=== PATIENT | female | born 1955 | race Caucasian/White ===

== ENCOUNTER 2018-10-20 14:17 | Observation (INO) ==
[2018-10-20] MEDS ORDERED: 0.9 % Sodium Chloride 1,000 ML IVC ONE (14:44)
--- NOTE | 2018-10-20 14:46 | Emergency Department Note ---
Disposition Clinical Impression: Elevated lactic acid level, Dyspnea, Palpitations Disposition: Home, Self-Care Condition: Fair Time of Disposition: 16:36 SOB HPI - General Chief Complaint: ED Shortness of Breath/Dyspnea Stated Complaint: 'Trouble Breathing, HR Feels Up' Time Seen by Provider: 10/20/18 14:32 Source: patient, family Mode of arrival: ambulatory Limitations: no limitations Nursing Notes Reviewed: Yes Vital Signs Reviewed: Yes - History of Present Illness 63-year-old female has been battling an upper respiratory cold for a couple weeks since he received today having palpitations shortness of breath denies though any blurred vision double vision denies any swelling or edema in the legs patient states that she is been having some flushing and feeling warm she denies diarrhea melena hematochezia hematemesis. She denies any known exposure to influenza. She denies any numbness tingling weakness recent weight gain weight loss she has taken antibiotics and with a little bit of improvement of symptoms all systems have been reviewed and are otherwise negative at this time Pt Subjective Complaint: shortness of breath, cough Onset (ago): week(s) (3) Context: recent illness Severity: moderate Consistency/Duration: gradually worsening Improves with: nothing Worsens with: exertion, movement Known history of: asthma Associated symptoms: Reports: pain with inspiration, fever, cough, wheezing, palpitations. Denies: chest pain, sputum production, orthopnea, lower extremity pain, polyuria, polydipsia, parasthesias, hemoptysis, diaphoresis, nausea/vomiti ng, syncope, abdominal pain, rash, sense of impending doom Treatment prior to arrival: none - Related Data Home Medications Medication Instructions Recorded Confirmed Atorvastatin Calcium [Lipitor] 20 mg PO HS 11/23/17 10/20/18 Lisinopril/Hydrochlorothiazide 1 tab PO DAILY 11/23/17 10/20/18 [Zestoretic 10-12.5 mg Tablet] Omeprazole [PriLOSEC] 20 mg PO DAILY PRN 11/23/17 10/20/18 metFORMIN [Glucophage] 500 mg PO BIDWM 11/23/17 10/20/18 Previous Rx's Medication Instructions Recorded Ibuprofen [Motrin] 600 mg PO Q6HR PRN #60 tab 11/23/17 Allergies Allergy/AdvReac Type Severity Reaction Status Date / Time gabapentin [From Neurontin] AdvReac Dizziness Verified 10/20/18 14:26 All systems ED: reviewed and negative except as stated. Review of Systems: As Per HPI Constitutional: Reports: fever. Denies: chills, weakness Eyes: Denies: eye pain, eye discharge ENT ED: Reports: congestion. Denies: ear pain, throat pain Cardiovascular: Reports: palpitations, dyspnea on exertion. Denies: chest pain Respiratory: Reports: cough, dyspnea, wheezes Gastrointestinal: Denies: abdominal pain, nausea, vomiting Genitourinary: Denies: urgency, dysuria, frequency Musculoskeletal: Denies: back pain, neck pain Integumentary: Denies: rash, abrasion, lesions Neurological: Denies: headache, weakness Psychiatric: Denies: anxiety, depression Endocrine: Denies: fatigue Hematological/Lymphatic: Denies: easy bleeding Allergic/Immunologic: Denies: facial swelling Past Medical History - Past Medical History Attestation: Yes The following information was validated with the patient. Source: patient, old records reviewed, obtained from family, nursing notes reviewed Medical history: Reports: diabetes, hyperlipidemia, hypertension Psychiatric history: Reports: no psych history COMPUTER ARCHITECT history: Reports: no COMPUTER ARCHITECT history - Social History Smoking Status: Never smoker Smokeless Tobacco Status: No Alcohol use: Reports: none Drug use: Reports: none Physical Exam - General Limitations: no limitations General appearance: alert, in no apparent distress - Head Head exam: atraumatic, normocephalic, normal inspection - Eye Eye exam: Present: normal appearance, PERRL, EOMI - ENT ENT exam: normal exam, normal oropharynx, mucous membranes moist, TM's normal bilaterally, normal external ear exam - Neck Neck exam: Present: normal inspection, full ROM, trachea midline - Chest Chest inspection: Present: normal inspection, symmetric chest wall rise - Respiratory Respiratory exam: Present: normal lung sounds bilaterally - Cardiovascular Cardiovascular exam: Present: tachycardia, normal heart sounds - Abdominal Exam Abdominal exam: Present: soft, Non-Tender, normal bowel sounds. Absent: mass, pulsatile mass - Extremities Exam Extremities exam: Present: normal inspection, full ROM, normal capillary refill. Absent: tenderness, pedal edema, joint swelling, calf tenderness - Expanded Lower Extremity Exam Neurovascular/Tendon exam: Present: normal capillary refill, normal fine/light touch Gait: observed and normal - Back Exam Back exam: Present: normal inspection, full ROM. Absent: muscle spasm - Neurological Exam Neurological exam: Present: alert, oriented X3, CN II-XII intact - Psychiatric Psychiatric exam: Present: normal affect, normal mood - Skin Skin exam: Present: warm, dry, intact, normal color Course Course Narrative: Patient was immediately seen and evaluated laboratory data was ordered including that for d-dimer to make sure that he did not have any evidence of pulmonary emboli - Reevaluation(s) Reevaluation #1: She does not elevated lactate which is 4.2 which does meet sepsis criteria she has responded well to the fluids her color is pink warm and dry her heart rate is drop significantly she has strong bounding pulses her heart is now irregular tachycardia and she is asymptomatic patient be admitted for observation started on antibiotics spoke with hospitalist who agreed Reevaluation #2: The elevated lactic acid cannot be completely delineated at this point but with her having an underlying history of diabetes with hydration there may be a presentation of pneumonia at that point IV hydration anabolic's will be given at this time I spoke with Dr. Cohen he is agreed for admission Vital Signs Temperature 99.5 F 10/20/18 14:26 Pulse Rate 131 10/20/18 14:26 Respiratory Rate 20 10/20/18 14:26 Blood Pressure 154/89 10/20/18 14:26 O2 Sat by Pulse Oximetry 95 10/20/18 14:26 Temperature 99.5 F 10/20/18 14:26 Pulse Rate 100 10/20/18 15:56 Respiratory Rate 22 10/20/18 15:56 Blood Pressure 123/81 10/20/18 15:56 O2 Sat by Pulse Oximetry 95 10/20/18 15:56 Oxygen Delivery Oxygen Delivery Room Air Shortness of Breath/Dyspnea - Differential Diagnosis Likely: pneumonia, asthma with exacerbation - Medical Records Medical records reviewed: Yes I reviewed the patient's medical records. - Lab Data Lab results reviewed: Yes I reviewed the patient's lab results. Result diagrams: 10/20/18 15:16 10/20/18 15:16 Lab Results 10/20/18 10/20/18 10/20/18 Range/Units 15:16 15:16 15:16 WBC 9.6 (4.3-11.1) K/mcL RBC 4.90 (3.82-4.97) M/mcL Hgb 13.9 (11.5-15.4) g/dL Hct 40.7 (35.3-44.9) % MCV 83.1 (83.0-100.0) fL MCH 28.4 (28.0-33.3) pg MCHC 34.2 (31.6-35.5) g/dL RDW 13.1 (11.5-14.5) % Plt Count 382 (140-400) K/mcL MPV 9.5 (9.4-12.4) fL Immature Gran % 0.3 (0-4) % Seg Neutrophils % 57.2 % Lymphocytes % 33.2 % Monocytes % 5.8 % Eosinophils % 2.9 % Basophils % 0.6 % Neutrophils # 5.5 (1.6-8.9) K/mcL Lymphocytes # 3.2 (0.6-4.6) K/mcL Monocytes # 0.6 (0.0-1.3) K/mcL Eosinophils # 0.3 (0.0-0.6) K/mcL Basophils # 0.1 (0.0-0.2) K/mcL PT 11.4 (9.4-12.1) Seconds INR 1.0 APTT 30.8 (26.0-36.0) Seconds D-Dimer (0-500) ng/mLFEU Sodium 134 L (136-145) mEq/L Potassium 3.3 L (3.5-5.1) mEq/L Chloride 96 L (98-107) mEq/L Carbon Dioxide 26 (23-29) mEq/L BUN 13 (8-23) mg/dL Creatinine 0.82 (0.60-1.20) mg/dL Est GFR ( Amer) > 60 (> 60) Est GFR (Non-Af Amer) > 60 (> 60) BUN/Creatinine Ratio 16 (6-26) Glucose 203 H (70-105) mg/dL Calculated Osmolality 284 (280-300) Lactic Acid (0.5-2.2) mmol/L Calcium 9.9 (8.6-10.3) mg/dL Total Bilirubin 0.3 (0.3-1.0) mg/dL AST 17 (13-39) Units/L ALT 19 (7-52) Units/L Alkaline Phosphatase 83 (34-104) Units/L Troponin I (< 0.04) ng/mL Serum Total Protein 7.6 (6.4-8.9) g/dL Albumin 4.3 (3.5-5.7) g/dL Globulin 3.3 (2.4-3.5) g/dL Albumin/Globulin Ratio 1.3 (1.1-2.2) TSH 0.188 L (0.340-5.600) mcIU/mL 10/20/18 10/20/18 10/20/18 Range/Units 15:16 15:16 15:16 WBC (4.3-11.1) K/mcL RBC (3.82-4.97) M/mcL Hgb (11.5-15.4) g/dL Hct (35.3-44.9) % MCV (83.0-100.0) fL MCH (28.0-33.3) pg MCHC (31.6-35.5) g/dL RDW (11.5-14.5) % Plt Count (140-400) K/mcL MPV (9.4-12.4) fL Immature Gran % (0-4) % Seg Neutrophils % % Lymphocytes % % Monocytes % % Eosinophils % % Basophils % % Neutrophils # (1.6-8.9) K/mcL Lymphocytes # (0.6-4.6) K/mcL Monocytes # (0.0-1.3) K/mcL Eosinophils # (0.0-0.6) K/mcL Basophils # (0.0-0.2) K/mcL PT (9.4-12.1) Seconds INR APTT (26.0-36.0) Seconds D-Dimer 341 (0-500) ng/mLFEU Sodium (136-145) mEq/L Potassium (3.5-5.1) mEq/L Chloride (98-107) mEq/L Carbon Dioxide (23-29) mEq/L BUN (8-23) mg/dL Creatinine (0.60-1.20) mg/dL Est GFR ( Amer) (> 60) Est GFR (Non-Af Amer) (> 60) BUN/Creatinine Ratio (6-26) Glucose (70-105) mg/dL Calculated Osmolality (280-300) Lactic Acid 4.2 H* (0.5-2.2) mmol/L Calcium (8.6-10.3) mg/dL Total Bilirubin (0.3-1.0) mg/dL AST (13-39) Units/L ALT (7-52) Units/L Alkaline Phosphatase (34-104) Units/L Troponin I < 0.03 (< 0.04) ng/mL Serum Total Protein (6.4-8.9) g/dL Albumin (3.5-5.7) g/dL Globulin (2.4-3.5) g/dL Albumin/Globulin Ratio (1.1-2.2) TSH (0.340-5.600) mcIU/mL - Radiology Data Radiology results reviewed: Yes I reviewed the patient's radiology results. ITS Impressions Chest X-Ray 10/20/18 14:38 IMPRESSION: No acute cardiopulmonary process. D/ / 10/20/2018 15:05:10 Rodolfo Corrigan MD / jeniffer Interpreting Provider: Rodolfo Corrigan MD Chest CT 10/20/18 16:42 IMPRESSION: 1. No acute cardiopulmonary findings. 2. Few 2-4 mm pulmonary nodules which are indeterminate. Recommend follow-up per Fleischner society guidelines. 3. Indeterminate 4.3 x 3.7 cm lobulated lesion left hepatic dome. Recommend further evaluation with MRI with Eovist. 4. Indeterminate 2.0 cm left thyroid nodule. Recommend further evaluation with ultrasound. D/ / Deisy Rome MD / Deisy Rome MD Interpreting Provider: Deisy Rome MD - EKG Data EKG attestation: Yes I reviewed and interpreted this EKG. EKG results narrative: Sinus tach rate 134 CO 147 0 mL 3 QT 284 axis -20 Critical Care Time Critical Care Time: Yes Total Critical Care Time: 35 Attestation: 35 minutes high probability clinically significant life-threatening deteri oration excluding reportable procedures Sepsis Event Note - Evaluation Sepsis Screen: No Definite Risk Current Stage of Suspected Sepsis: sepsis Possible Source of Sepsis: pulmonary - Focused Exam Date of Encounter: 10/20/18 Time of Encounter: 16:30 Vital Signs: Vital Signs Temp Pulse Resp BP Pulse Ox 10/20/18 17:00 98 136/81 94 10/20/18 15:56 100 22 123/81 95 10/20/18 14:47 109 12 127/77 95 10/20/18 14:26 99.5 F 131 20 154/89 95 Respiratory Exam: Present: CTA bilaterally Cardiovascular Exam: Present: tachycardia Capillary Refill: < 2 seconds Peripheral Pulse Strength: 4+ bounding Peripheral Pulse Location: Radial Skin Exam: normal turgor - Bedside Monitoring Bedside Ultrasound Performed: No Passive Leg raise/fluid bolus: fluid responsive
[2018-10-20 15:34] LABS: Basophils # 0.1 K/mcL (0.0-0.2); Basophils % 0.6 %; Eosinophils # 0.3 K/mcL (0.0-0.6); Eosinophils % 2.9 %; Hematocrit 40.7 % (35.3-44.9); Hemoglobin 13.9 g/dL (11.5-15.4); Immature Granulocytes % 0.3 % (0-4); Lymphocytes # 3.2 K/mcL (0.6-4.6); Lymphocytes % 33.2 %; Mean Corpuscular HGB Conc 34.2 g/dL (31.6-35.5); Mean Corpuscular Hemoglobin 28.4 pg (28.0-33.3); Mean Corpuscular Volume 83.1 fL (83.0-100.0); Mean Platelet Volume 9.5 fL (9.4-12.4); Monocytes # 0.6 K/mcL (0.0-1.3); Monocytes % 5.8 %; Neutrophils # 5.5 K/mcL (1.6-8.9); Platelet Count 382 K/mcL (140-400); Red Cell Distribution Width 13.1 % (11.5-14.5); Segmented Neutrophils % 57.2 %
[2018-10-20 15:35] LABS: Prothrombin Time 11.4 Seconds (9.4-12.1)
[2018-10-20 15:37] LABS: Activated Partial Thrombo Time 30.8 Seconds (26.0-36.0)
[2018-10-20 15:45] LABS: Alanine Aminotransferase 19 Units/L (7-52); Albumin 4.3 g/dL (3.5-5.7); Albumin/Globulin Ratio 1.3 (1.1-2.2); Alkaline Phosphatase 83 Units/L (34-104); Aspartate Amino Transferase 17 Units/L (13-39); BUN/Creatinine Ratio 16 (6-26); Bilirubin,Total 0.3 mg/dL (0.3-1.0); Blood Urea Nitrogen 13 mg/dL (8-23); Calcium 9.9 mg/dL (8.6-10.3); Carbon Dioxide 26 mEq/L (23-29); Chloride 96 mEq/L (98-107); Globulin 3.3 g/dL (2.4-3.5); Glucose 203 mg/dL (70-105); Osmolality,Calculated 284 (280-300); Potassium 3.3 mEq/L (3.5-5.1); Sodium 134 mEq/L (136-145); Total Protein 7.6 g/dL (6.4-8.9); eGFR For Non-African Americans > 60 (> 60)
[2018-10-20 15:58] LABS: Thyroid Stimulating Hormone 0.188 mcIU/mL (0.340-5.600)
[2018-10-20] MEDS ORDERED: Levofloxacin 750 MG/150 ML 750 MG/150 ML BAG IVPB ONE (16:18)
[2018-10-20] MEDS: 0.9 % Sodium Chloride 1,000 ML IVC SCH ×10 (16:38→20:12)
[2018-10-20] MEDS ORDERED: Acetaminophen 325 MG TABLET PO PRN (17:44)
[2018-10-20] MEDS ORDERED: Naloxone 0.4 MG/ML INJ IVP PRN (17:44)
[2018-10-20] MEDS ORDERED: D5% in Water 1,000 ML IVC PRN (17:44)
[2018-10-20] MEDS ORDERED: Ibuprofen 400 MG TABLET PO PRN (17:44)
[2018-10-20] MEDS ORDERED: Dextrose Gel 15 GM/37.5 ML TUBE PO PRN ×2 (17:44)
[2018-10-20] MEDS ORDERED: *HR* Dextrose 50 % in Water (Syg) 50 ML SYRINGE IVP PRN (17:44)
--- NOTE | 2018-10-20 19:41 | Internal Med History&Physical ---
Date of Encounter: 10/21/18 Time of Encounter: 19:40 Assessment and Plan (1) Elevated lactic acid level Current visit: Yes Status: Acute Patient had elevated lactate of 4.2. In addition hyponatremia, hypokalemia and probable dehydration with tachycardia and palpitations now improved with IV fluids. No obvious septicemia. Markedly improved after fluids. Likely due to hypovolemia. We will continue IV fluids overnight. Follow up lactate planned. (2) Palpitations Current visit: Yes Status: Acute Patient had palpitations on admission was presyncopal, her heart rate was in the 130s. After IV fluids she is now normalizing. She feels much better. This is likely mild dehydration. Continue IV fluids. (3) Hypokalemia Current visit: Yes Status: Acute Mild hypokalemia and we will replace intravenously through the night. Follow-up tomorrow. (4) Hyponatremia Current visit: Yes Status: Acute Mild hyponatremia she will have IV fluids to the night. Follow up for tomorrow. (5) Sinusitis Current visit: Yes Status: Acute History of sinusitis, sinus pressure and drainage. She was finishing a course of Augmentin when her episode occurred today. She was given IV Levaquin in the ER and we will continue as such. Qualifiers: Sinusitis location: other Recurrence: non-recurrent Qualified Code(s): J01.80 - Other acute sinusitis (6) Liver mass Current visit: Yes Status: Acute Incidental finding of a lobulated mass in the dome of the liver will need follow-up testing. (7) Thyroid nodule Current visit: Yes Status: Acute 2 cm thyroid nodule needs follow-up as an outpatient. (8) Lung nodule < 6cm on CT Current visit: Yes Status: Acute Multiple lung nodules that are less than 6 cm and will need further evaluation per protocol. (9) Hypertension Current visit: Yes Status: Acute Long-standing history of hypertension. Coming to the ER her blood pressure markedly elevated. It is now improved. We will follow. Qualifiers: Hypertension type: essential hypertension Qualified Code(s): I10 - Essential (primary) hypertension Internal Medicine - H&P: HPI Chief complaint: I thought I was going to pass out and my heart was racing Admitted From: Emergency Dept Plans for Post Hospital Care: Home History of present illness: Ms. Scott is a 63 year old female who is a known hypertensive and diabetic is been suffering for bronchitis can to the emergency room today with history that she thought she was going to pass out. Patient was seen 10/11/18 in the office by Claire Vences DENTAL TECHNICIAN APPRENTICE was treated with amoxicillin/clavulanic acid for acute sinusitis. She had just finished that course and she called this morning that she was not feeling well and the office was going to refill 5 more days of the antibiotic. However, this afternoon she had sudden onset of "going to pass out", her heart rate felt like it was up and she was dizzy. She is also flushed. She has been very dry in the mouth for the past couple of days. She was sweating this morning. She states her hands felt "weird" she is also had indigestion for the past 2 days. She thought she was eating well enough. She was evaluated in the emergency was found to be tachycardic and have elevated lactate level of 4.2. Chest x-ray was unremarkable, CT scan showed bronchial thickening but no infiltrate. She did have incidental findings of small pulmonary nodules, thyroid lesion and a lobulated lesion in her liver that needs further evaluation. Other blood work and testing was fairly unremarkable. She did show vast improvement with just over a liter of fluids. As she finishes her second liter of fluids she states that she feels much improved. No cardiac anginal type pain. No dyspnea. No unilateral focal deficit. Past Med Surg Social Fam HX - Past Medical History Medical history: arthritis, diabetes, hyperlipidemia, hypertension Psychiatric history: no psych history - Past Surgical History Additional surgical history: right hip, hysteroscopy - polyps removed, D and C - Social History Smoking Status: Never smoker Smokeless Tobacco Status: No Alcohol use: none Drug use: none Occupational status: retired Activity Level: Independent ambulation Recent Out of Country Travel Within the Last 8 Weeks: No Exposure or Possible Exposure to Illness During Travel: No - Family History Mother Living Status: Still Living Hx Family Cardiac Disorders: Yes (HTN) Father Living Status: Age at : 76 Cause of : Diabetic Internal Medicine - H&P: Meds Atorvastatin Calcium [Lipitor] 20 mg PO HS 11/23/17 [History] Ibuprofen [Motrin] 600 mg PO Q6HR PRN #60 tab 11/23/17 [Rx] Lisinopril/Hydrochlorothiazide [Zestoretic 10-12.5 mg Tablet] 1 tab PO DAILY 11/23/17 [History] metFORMIN [Glucophage] 500 mg PO BIDWM 11/23/17 [History] Cyanocobalamin (B-12) [Vitamin B12] 2,000 mcg PO DAILY 10/20/18 [History] Allergy/AdvReac Type Severity Reaction Status Date / Time gabapentin [From Neurontin] AdvReac Dizziness Verified 10/20/18 14:26 - Constitutional Constitutional: excessive sweating, lethargy, weakness Additional comments: She felt like she was going to pass out prior to coming to the ER. - EENT Eyes: no change in vision Ears: no ear discharge, no ear pain Nose, mouth and throat: dry mouth, hoarseness, sinus pain, sinus pressure, no neck mass - Cardiovascular Cardiovascular ROS IM: lightheadedness, palpitations, no chest pain, no dyspnea, no dyspnea on exertion, no syncope - Respiratory Respiratory: cough, chest congestion, no dyspnea, no hemoptysis, no dyspnea on exertion, no wheezing - Gastrointestinal Gastrointestinal: dyspepsia (She has had some indigestion and took some omepra zole.), no constipation, no diarrhea, no hematemesis, no melena, no vomiting - Genitourinary Genitourinary: no difficulty voiding, no pelvic pain Menstruation: post menopausal - Musculoskeletal Musculoskeletal ROS IM: no arthralgias - Integumentary Integumentary IM: no rash - Neurological Neurological ROS: dizziness, weakness (Generalized weakness such that she thought she was going to pass out), no loss of vision, no tremor(s) - Psychiatric Psychiatric: no anxiety, no confusion, no depression - Constitutional Vitals: Temp Pulse Resp BP Pulse Ox 99.1 F 102 16 134/88 95 10/20/18 17:46 10/20/18 17:46 10/20/18 17:46 10/20/18 17:46 10/20/18 17:46 General appearance: Present: A&O X 3, pleasant, no acute distress, obese, answers questions appropriately - Head Head exam: Present: atraumatic - Eye Eye exam: Present: EOMI. Absent: conjunctival injection - ENT ENT exam: Present: mucous membranes moist, normal exam, TM's normal bilaterally - Neck Neck exam general surgery: Present: full ROM. Absent: lymphadenopathy, tenderness, nuchal rigidity, thyromegaly - Respiratory Respiratory exam: Present: CTAB. Absent: respiratory distress - Cardiovascular Cardiovascular exam: Present: RRR, +S1, +S2. Absent: systolic murmur - GI/Abdominal GI/Abdominal exam: Present: soft, no peritoneal signs. Absent: guarding, hepatomegaly, mass, tenderness - Extremities Exam Extremities exam: Absent: calf tenderness, joint swelling, mottling, pedal edema, tenderness - Back Exam Back exam: Absent: CVA tenderness (L), CVA tenderness (R), tenderness, vertebral tenderness - Neurological Exam Neurological exam: Present: alert, altered, CN II-XII intact, oriented X3, no focal deficits, strengths equal and symetr throughout - Psychiatric Psychiatric exam: Present: normal affect, normal mood - Skin Skin exam: Absent: mottled, rash Internal Med - H&P Results - Labs CBC & Chem 7: 10/21/18 05:40 10/21/18 05:40 Labs: Short CBC 10/20/18 Range/Units 15:16 WBC 9.6 (4.3-11.1) K/mcL Hgb 13.9 (11.5-15.4) g/dL Hct 40.7 (35.3-44.9) % Plt Count 382 (140-400) K/mcL Neutrophils # 5.5 (1.6-8.9) K/mcL BMP 10/20/18 15:16 Sodium 134 L Potassium 3.3 L Chloride 96 L Carbon Dioxide 26 BUN 13 Creatinine 0.82 Glucose 203 H Calcium 9.9 Cardiac Enzymes 10/20/18 Range/Units 15:16 Troponin I < 0.03 (< 0.04) ng/mL Liver Function 10/20/18 Range/Units 15:16 Total Bilirubin 0.3 (0.3-1.0) mg/dL AST 17 (13-39) Units/L ALT 19 (7-52) Units/L Alkaline Phosphatase 83 (34-104) Units/L Albumin 4.3 (3.5-5.7) g/dL Labs have been reviewed. Remarkable for lactate of 4.0. Respiratory lab work remarkable for sodium 134 and potassium 3.3. Renal function is good. Moderate elevated glucose in a diabetic. - Impressions ITS Impressions Chest X-Ray 10/20/18 14:38 IMPRESSION: No acute cardiopulmonary process. D/ / 10/20/2018 15:05:10 Rodolfo Corrigan MD / jeniffer Interpreting Provider: Rodolfo Corrigan MD Chest CT 10/20/18 16:42 IMPRESSION: 1. No acute cardiopulmonary findings. 2. Few 2-4 mm pulmonary nodules which are indeterminate. Recommend follow-up per Fleischner Society guidelines. 3. Indeterminate 4.3 x 3.7 cm lobulated lesion in the left hepatic dome. Recommend further evaluation with MRI with Eovist. 4. Indeterminate 2.0 cm left thyroid nodule. Recommend further evaluation with ultrasound. D/ / 10/20/2018 17:09:27 Deisy Rome MD / avi Interpreting Provider: Deisy Rome MD - Diagnostic Studies Chest x-ray Additional comments: Chest x-ray was read as unremarkable CT scan - chest Additional comments: CT of chest showed bronchial thickening. Incidental findings of small noncalcified lung nodules, lobulated liver mass in the liver dome that needs further follow-up, and a 2 cm thyroid nodule
[2018-10-20] MEDS: Insulin LISPRO 300 UNITS/3 ML VIAL SQ SCH (20:07)
[2018-10-20] MEDS: 0.9 % Sodium Chloride w KCl 20 MEQ/1,000 ML MLS IVC SCH (20:44)
[2018-10-20] MEDS ORDERED: NON-FORMULARY MEDICATION 1 EACH EACH (Atorvastatin Calcium [Lipitor] 20 MG) PO SCH (21:00)
[2018-10-21] MEDS: 0.9 % Sodium Chloride 1,000 ML IVC SCH (03:15)
[2018-10-21] MEDS: 0.9 % Sodium Chloride w KCl 20 MEQ/1,000 ML MLS IVC SCH ×2 (05:02→12:11)
[2018-10-21] MEDS ORDERED: *HR* Enoxaparin 40 MG/0.4 ML SYRINGE SQ SCH (06:00)
[2018-10-21 06:23] LABS: Basophils % 0.5 %; Eosinophils # 0.3 K/mcL (0.0-0.6); Eosinophils % 3.5 %; Hematocrit 38.1 % (35.3-44.9); Hemoglobin 12.6 g/dL (11.5-15.4); Immature Granulocytes % 0.4 % (0-4); Lymphocytes # 3.5 K/mcL (0.6-4.6); Lymphocytes % 41.6 %; Mean Corpuscular HGB Conc 33.1 g/dL (31.6-35.5); Mean Corpuscular Hemoglobin 28.3 pg (28.0-33.3); Mean Corpuscular Volume 85.4 fL (83.0-100.0); Mean Platelet Volume 9.5 fL (9.4-12.4); Monocytes # 0.6 K/mcL (0.0-1.3); Monocytes % 6.6 %; Platelet Count 336 K/mcL (140-400); Red Blood Count 4.46 M/mcL (3.82-4.97); Red Cell Distribution Width 13.2 % (11.5-14.5); Segmented Neutrophils % 47.4 %
[2018-10-21 06:34] LABS: BUN/Creatinine Ratio 14 (6-26); Blood Urea Nitrogen 10 mg/dL (8-23); Carbon Dioxide 26 mEq/L (23-29); Chloride 103 mEq/L (98-107); Glucose 160 mg/dL (70-105); Osmolality,Calculated 284 (280-300); Potassium 3.8 mEq/L (3.5-5.1); Sodium 136 mEq/L (136-145); eGFR For Non-African Americans > 60 (> 60)
[2018-10-21 07:49] VITALS: BP 128/80
[2018-10-21] MEDS ORDERED: *HR* Metformin 500 MG TABLET PO SCH (08:00)
[2018-10-21] MEDS: Insulin LISPRO 300 UNITS/3 ML VIAL SQ SCH ×2 (08:49→12:10)
[2018-10-21] MEDS ORDERED: Levofloxacin 750 MG/150 ML 750 MG/150 ML BAG IVPB SCH (09:00)
[2018-10-21] MEDS ORDERED: Cyanocobalamin (B-12) 1,000 MCG TABLET PO SCH (09:00)
--- NOTE | 2018-10-21 09:57 | Electrocardiograph Report ---
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
--- NOTE | 2018-10-21 13:06 | Discharge Summary ---
- NOTES TO OUTPATIENT PROVIDER Notes to Outpatient Provider: #1. Levaquin prescribed for sinusitis. #2. Incidental findings on CT scan include multiple lung nodules, thyroid nodule, liver mass. These need outpatient follow-up. Date of Encounter: 10/21/18 Time of Encounter: 13:04 - Discharge Diagnosis (1) Elevated lactic acid level Priority: Primary Status: Acute Comments: Patient was admitted to the ER with presyncopal symptoms and palpitations. She was found to have tachycardia and elevated lactate of 4.2. She had no other signs of septicemia and workup was otherwise unremarkable except for hyponatremia and hypokalemia. It is felt that this may be due to hypovolemia and she was given IV fluids which helped her tachycardia and she felt markedly improved. After IV fluids the patient's lactate is now normal. No other particular signs of sepsis. Examination is normal other than sinus symptoms. She will be discharged to home today. (2) Palpitations Priority: Secondary Status: Acute Comments: She had heart rate in 130s in the ER. After IV rehydration her pulse is now normal. An incidental finding on alarm security or surveillance monitor was a 2.23 second pause. She did have occasional missed beat as well. On review of the office record she had a reassuring stress test in 2013. She is having no cardiac symptoms or recurring lightheadedness or presyncopal symptoms. Consideration for 24 or 48 hour Holter monitor to see if there is recurrence of the pause lasting over 2 seconds or anything worsening. (3) Hypokalemia Priority: Secondary Status: Acute Comments: In the ER potassium 3.3 and after hydration and potassium supplementation her potassium is 3.8. (4) Hyponatremia Priority: Secondary Status: Acute Comments: Mild hyponatremia sodium 134 resolved after IV hydration and replacement in sodium is now 136. (5) Sinusitis Priority: Secondary Status: Acute Comments: It appears that her underlying infection is likely sinusitis partially treated with Augmentin. On admission from the ER she was placed on Levaquin and will continue 5 more days of that. I did recommend ENT evaluation because this seems to be ongoing recurring problem for the past 2 years. Qualifiers: Sinusitis location: other Recurrence: non-recurrent Qualified Code(s): J01.80 - Other acute sinusitis (6) Liver mass Priority: Secondary Status: Acute Comments: CT scan of the lungs was done in the ER because of elevated lactate looking for occult pneumonia. Incidental finding of lobulated liver mass measuring 3.74.3 cm left hepatic dome. Radiologist has recommended further evaluation with MRI with Eovist. She has no symptoms related to this. Liver functions in the ER were normal (7) Thyroid nodule Priority: Secondary Status: Acute Comments: When CT scan of the chest was done in the ER there was an incidental finding of 2.01.1 cm left thyroid nodule. The left thyroid gland feels a bit larger than the right but I do not discern that nodule. She will have further evaluation as an outpatient. (8) Lung nodule < 6cm on CT Priority: Secondary Status: Acute Comments: Incidental finding on the lung CT of multiple noncalcified nodules measuring between 2 mm and 4 mm and it is recommended to have follow-up per Dr. Moss Society guidelines (9) Hypertension Priority: Secondary Status: Acute Comments: She has a long-standing history of hypertension. During hospital stay her pressures were elevated in the ER and then normalized after admission. No changes were made in her medication. Qualifiers: Hypertension type: essential hypertension Qualified Code(s): I10 - Essential (primary) hypertension Hospital course: Ms. Scott is a 63 year old female with known history of diabetes and hypertension came to the emergency room with lightheadedness, presyncopal symptoms, heart palpitations. She is found to have signs of dehydration with tachycardia and elevated lactate. With rehydration things basically normalized. Some incidental findings were noted on her CT scan of the lungs. Please see the diagnoses above. She was discharged today in much improved condition with 5 days of Levaquin for sinusitis. Discharge discussed with: patient, family - Time Spent with Patient Total time spent providing and/or coordinating discharge services: - Discharge Medications Prescriptions: levoFLOXacin [Levaquin] 500 mg PO DAILY #5 tablet Home Medications: Atorvastatin Calcium [Lipitor] 20 mg PO HS 11/23/17 [History] Ibuprofen [Motrin] 600 mg PO Q6HR PRN #60 tab 11/23/17 [Rx] Lisinopril/Hydrochlorothiazide [Zestoretic 10-12.5 mg Tablet] 1 tab PO DAILY 11/23/17 [History] metFORMIN [Glucophage] 500 mg PO BIDWM 11/23/17 [History] Cyanocobalamin (B-12) [Vitamin B12] 2,000 mcg PO DAILY 10/20/18 [History] levoFLOXacin [Levaquin] 500 mg PO DAILY #5 tablet 10/21/18 [Rx] Allergies/Adverse Reactions: Allergy/AdvReac Type Severity Reaction Status Date / Time gabapentin [From Neurontin] AdvReac Dizziness Verified 10/20/18 14:26 Date of admission: 10/20/18 17:18 Primary care physician: Shelli Heard CNP Discharging clinician: Jarocho Mckenzie Anticipated date of discharge: 10/21/18 - Constitutional Vitals: Temp Pulse Resp BP Pulse Ox 97.6 F 91 19 128/80 97 10/21/18 07:46 10/21/18 07:46 10/21/18 04:34 10/21/18 07:46 10/21/18 07:46 General appearance: Present: A&O X 3, pleasant, no acute distress, obese, answers questions appropriately - Respiratory Respiratory exam: Present: CTAB - Cardiovascular Cardiovascular exam: Present: RRR, +S1, +S2 - GI/Abdominal GI/Abdominal exam: Present: soft. Absent: hepatomegaly, tenderness - Extremities Exam Extremities exam: Absent: calf tenderness, pedal edema, tenderness - Patient Status Disposition: Home, Self-Care Condition: Good Functional capacity at discharge: independent ambulation Overall status at discharge: patient is progressing back to baseline - Discharge Instructions Follow Up With: Shelli Heard CNP [Primary Care Provider] - - Diet and Activity Activity: increase activity as tolerated Diet: diabetic diet
== END 2018-10-21 13:52 | disposition home or self-care (01) ==
LOC: INPGRE 14:17 → EMEROOGRE 14:17 → INPGRE 17:41
PROVIDERS: ADMIT Family Medicine; ATTEND Family Medicine